=== PATIENT | male | born 1965 | race Caucasian/White ===

== ENCOUNTER 2017-01-12 16:12 | Emergency (ER) | payer MEDICARE ==
[~2017-01-12] VITALS: Ht 177.8 cm; Wt 65.8 kg
[~2017-01-12 16:12] MED LIST: ASPIRIN81 M1 PO; ASPIRIN81 MG PO; BENTYL10 MG PO; CIPRO500 MG PO; CIPROFLOXACIN500 MG PO; DAYPRO600 M1 PO; FLOMAX0.4 MG PO; HYDROCODONE BIT1 T11 PO; HYDROXYZINE10 MG; MEDROL DOSEPAK4 MG PO; Miralax Powder255 GM PO; NEXIUM40 MG PO; PROVENTIL0.09 MG/AC INH; PYRIDIUM200 MG PO; ROBAXIN750 MG PO; ZOFRAN ODT4 MG SL
[2017-01-12] MEDS ORDERED: DICYCLOMINE HCL10 MG PO (16:23)
[2017-01-12 17:09] LABS: BASO % 0.4 % (0.0-1.0); EOS # 0.7 10*3/uL (0.0-0.4); EOS % 7.7 % (1.0-4.0); HEMATOCRIT 44.9 % (42.0-52.0); HEMOGLOBIN 15.3 g/dl (14.0-18.0); LYMPH # 1.5 10*3/uL (1.3-4.4); LYMPH % 15.6 % (27.0-41.0); MEAN CELL VOLUME 87.2 fl (80.0-94.0); MEAN CORPUSCULAR HGB 29.7 pg (27.0-31.0); MEAN CORPUSCULAR HGB CONC 34.1 g/dl (33.0-37.0); MEAN PLATELET VOLUME 9.1 fl (9.6-12.3); MONO # 0.5 10*3/uL (0.1-1.0); MONO % 4.8 % (3.0-9.0); NEUT # 6.9 10*3/uL (2.3-7.9); NEUT % 71.2 % (47.0-73.0); PLATELET COUNT AUTOMATED 261 10*3/uL (130-400); RED BLOOD COUNT 5.15 10*6/uL (4.50-5.90); RED CELL DISTRI WIDTH 13.4 % (0-14.5); WHITE BLOOD COUNT 9.7 10*3/uL (4.8-10.8)
[2017-01-12 17:26] LABS: ALBUMIN 3.9 gm/dl (3.1-4.5); ALKALINE PHOSPHATASE 72 U/L (45-117); BILIRUBIN, TOTAL 0.6 mg/dl (0.2-1.0); BUN 26 mg/dl (7-24); CARBON DIOXIDE 23 mmol/L (21-32); CHLORIDE 107 mmol/L (98-107); CPK 365 U/L (39-308); EST GLOM FILT AFRICAN AMERICAN > 60 ml/min; GLUCOSE 74 mg/dL (65-99); MAGNESIUM 2.2 mg/dL (1.5-2.1); POTASSIUM 4.1 mmol/L (3.5-5.1); SGOT/AST 26 IU/L (3-35); SGPT/ALT 21 U/L (12-78); SODIUM 140 mmol/L (136-145); TOTAL PROTEIN 7.8 gm/dL (6.4-8.2)
[2017-01-12 17:28] LABS: CKMB 4.9 ng/ml (0.5-3.6); TROPONIN I < 0.015 ng/ml (<0.045)
[2017-01-12] MEDS ORDERED: VENTOLIN H0.09 MG/AC INH (19:16)
[2017-01-12] MEDS ORDERED: PREDNISONE10 MG PO (19:16)
[2017-01-12] MEDS ORDERED: DOXYCYCLINE100 M3 PO (19:16)
[2017-01-12] MEDS ORDERED: ROBITUSSIN AC 110 ML PO (19:16)
== END 2017-01-12 19:14 | disposition home or self-care (01) ==
LOC: ED 16:12
PROVIDERS: Registered Nurse
DX: J20.9 Acute bronchitis, unspecified (principal); Z79.899 Other long term (current) drug therapy; Z79.82 Long term (current) use of aspirin

== ENCOUNTER 2017-02-08 22:21 | Emergency (ER) | payer MEDICARE, OTHER ==
[~2017-02-08] VITALS: Ht 177.8 cm; Wt 68.0 kg
[~2017-02-08 22:21] MED LIST changes: +DICYCLOMINE HCL10 MG PO; +DOXYCYCLINE100 M3 PO; +PREDNISONE10 MG PO; +ROBITUSSIN AC 110 ML PO; +VENTOLIN H0.09 MG/AC INH
[2017-02-08] MEDS ORDERED: ZITHROMAX250 MG PO (23:17)
== END 2017-02-08 23:32 | disposition home or self-care (01) ==
LOC: ED 22:21
DX: H65.112 Acute and subacute allergic otitis media (mucoid) (sanguinous) (serous), left ear (principal); J40 Bronchitis, not specified as acute or chronic; Z79.82 Long term (current) use of aspirin; Z79.899 Other long term (current) drug therapy

== ENCOUNTER → 2020-06-24 | Outpatient (CLI) | payer MEDICARE, OTHER ==
[~2020-06-24] MED LIST changes: +CEPHALEXIN500 M1 PO; +EFFEXOR XR75 M1 PO; +PEPCID40 MG PO; +VISTARIL50 MG PO; +VITAMIN D-32000 UNI1 PO; +ZITHROMAX250 MG PO
== END | disposition home or self-care (01) ==
LOC: RAD 13:37
PROVIDERS: ATTEND Internal Medicine
DX: M50.323 Other cervical disc degeneration at C6-C7 level (principal)

== ENCOUNTER 2024-04-25 09:46 | Emergency (ER) | payer OTHER ==
[~2024-04-25] VITALS: Wt 68.0 kg
[2024-04-25 10:32] LABS: BASO # 0.1 10*3/uL (0.0-0.1); BASO % 0.7 % (0.0-1.0); EOS # 0.1 10*3/uL (0.0-0.4); EOS % 0.7 % (1.0-4.0); HEMATOCRIT 44.6 % (42.0-52.0); LYMPH # 1.6 10*3/uL (1.3-4.4); MEAN CELL VOLUME 88.5 fl (80.0-94.0); MEAN CORPUSCULAR HGB 29.2 pg (27.0-31.0); MEAN PLATELET VOLUME 8.7 fl (9.6-12.3); MONO # 0.4 10*3/uL (0.1-1.0); NEUT # 5.1 10*3/uL (2.3-7.9); NEUT % 71.5 % (47.0-73.0); PLATELET COUNT AUTOMATED 276 10*3/uL (130-400); RED BLOOD COUNT 5.04 10*6/uL (4.50-5.90); RED CELL DISTRI WIDTH 13.8 % (0-14.5); WHITE BLOOD COUNT 7.2 10*3/uL (4.8-10.8)
[2024-04-25 11:10] LABS: BUN 15 mg/dl (9-23); CHLORIDE 104 mmol/L (98-107); POTASSIUM 4.2 mmol/L (3.4-5.1)
[2024-04-25] MEDS ORDERED: MAGNESIUM CITRATE 296 ML BOT PO ONE (13:55)
[2024-04-25] MEDS ORDERED: GLYCERIN 1 SUPP SUPP R ONE (13:55)
[2024-04-25] MEDS ORDERED: MIRALAX POWDER17 G1 PO (13:56)
== END 2024-04-25 14:27 | disposition home or self-care (01) ==
LOC: ED 09:46
PROVIDERS: Internal Medicine
DX: K59.00 Constipation, unspecified (principal); R11.2 Nausea with vomiting, unspecified; I25.2 Old myocardial infarction; J44.9 Chronic obstructive pulmonary disease, unspecified; F12.90 Cannabis use, unspecified, uncomplicated; F41.9 Anxiety disorder, unspecified; Z98.890 Other specified postprocedural states; Z87.891 Personal history of nicotine dependence